=== PATIENT | female | born 1940 | race Caucasian/White ===

== ENCOUNTER 2016-06-03 00:38 | Inpatient (IN) ==
[2016-06-03 02:49] LABS: Basophils % 0.3 %; Eosinophils # 0.2 K/mcL (0.0-0.6); Eosinophils % 1.2 %; Hematocrit 41.2 % (35.3-44.9); Hemoglobin 13.1 g/dL (11.5-15.4); Immature Granulocytes % 0.6 % (0-4); Lymphocytes # 3.8 K/mcL (0.6-4.6); Lymphocytes % 30.8 %; Mean Corpuscular HGB Conc 31.8 g/dL (31.6-35.5); Mean Corpuscular Hemoglobin 29.1 pg (28.0-33.3); Mean Corpuscular Volume 91.6 fL (83.0-100.0); Mean Platelet Volume 9.9 fL (9.4-12.4); Monocytes # 1.2 K/mcL (0.0-1.3); Monocytes % 9.9 %; Platelet Count 249 K/mcL (140-400); Red Cell Distribution Width 13.4 % (11.5-14.5); Segmented Neutrophils % 57.2 %
[2016-06-03 02:54] LABS: INR 1.9; Prothrombin Time 21.4 Seconds (9.4-12.1)
[2016-06-03 02:57] LABS: Activated Partial Thrombo Time 37.5 Seconds (26.0-36.0)
[2016-06-03 03:06] LABS: Alanine Aminotransferase 56 Units/L (0-55); Albumin 3.1 g/dL (3.5-5.0); Albumin/Globulin Ratio 0.8 (1.1-2.2); Alkaline Phosphatase 126 Units/L (38-126); Aspartate Amino Transferase 32 Units/L (5-34); BUN/Creatinine Ratio 31 (6-26); Bilirubin,Direct 0.5 mg/dL (0.0-0.5); Bilirubin,Indirect 0.9 mg/dL (0.0-1.2); Bilirubin,Total 1.4 mg/dL (0.2-1.2); Blood Urea Nitrogen 24 mg/dL (7-20); Calcium 8.8 mg/dL (8.6-10.8); Carbon Dioxide 26 mEq/L (19-29); Chloride 104 mEq/L (98-109); Globulin 3.8 g/dL (2.4-3.5); Glucose 89 mg/dL (70-99); Osmolality,Calculated 292 (280-300); Potassium 3.5 mEq/L (3.5-4.5); Sodium 139 mEq/L (136-145); Total Protein 6.9 g/dL (6.0-8.3); eGFR For African Americans > 60 (> 60); eGFR For Non-African Americans > 60 (> 60)
--- NOTE | 2016-06-03 03:16 | Emergency Department Note ---
Disposition Clinical Impression: Hematuria, Lymphedema Disposition: Admitted As Inpatient Condition: Good Referrals: Thomas Parisi DO [Primary Care Provider] - Forms: Work/School Release, ED Satisfaction Letter Time of Disposition: 06:59 General Adult HPI - General Chief complaint: ED General Medical Stated complaint: r/o dvt vaginal bleeding Time Seen by Provider: 06/03/16 02:09 Source: patient Limitations: no limitations Nursing Notes Reviewed: Yes Vital Signs Reviewed: Yes - History of Present Illness HPI Narrative: 75-year-old female presents with bilateral leg swelling. She mentioned she had felt sick today had not taken her "water pill". She mentioned she has been diagnosed with cellulitis in her legs, but denies taking any medications for this. She states the redness states comes and goes. She states her legs are always swollen however they have become more swollen lately the point where it became difficult to walk. She does have a history of DVT currently taking Xarelto. She also has some mild tenderness on her left lower leg. Earlier in the week she had some abdominal pain but currently denies that. She has mentioned that she had been diagnosed with a urinary tract infection, and feels that she still has one. She has noticed some blood when she urinates, when she wipes. She has noticed some vaginal itching that has been occurring for 1 week. She denies any shortness of breath, cough, chest pain, history of liver disease. Pain Scale: 0 - Related Data Home Medications Medication Instructions Recorded Confirmed Bumetanide [Bumex] 1 mg PO DAILY 01/01/15 06/03/16 Gabapentin [Neurontin] 300 mg PO TID 01/01/15 06/03/16 Metoprolol [Lopressor] 50 mg PO BID 01/01/15 06/03/16 Rivaroxaban [Xarelto] 20 mg PO DAILY 01/01/15 06/03/16 Diltiazem HCl [Cartia Xt] 180 mg PO DAILY 08/14/15 06/03/16 LORazepam [Ativan] 0.5 mg PO BID PRN 08/14/15 06/03/16 Allergies Allergy/AdvReac Type Severity Reaction Status Date / Time tramadol [From Ultram] Allergy Swelling Verified 08/19/15 12:42 of Lip/Tongue/Throat latex AdvReac Unknown See Verified 08/19/15 14:44 Comments All systems ED: reviewed and negative except as stated. Constitutional: Denies: fever, chills ENT ED: Denies: ear pain Cardiovascular: Denies: chest pain Respiratory: Denies: dyspnea Gastrointestinal: Denies: abdominal pain, nausea, vomiting Genitourinary: Reports: hematuria, other (genital itching). Denies: dysuria, discharge Musculoskeletal: Denies: back pain Integumentary: Denies: rash Neurological: Reports: weakness Endocrine: Denies: fatigue Hematological/Lymphatic: Reports: as per HPI Past Medical History - Past Medical History Medical history: Reports: asthma, DVT, hypertension, other Psychiatric history: Reports: anxiety, depression - Social History Smoking Status: Never smoker Smokeless Tobacco Status: No Alcohol use: Reports: none Drug use: Reports: none Physical Exam - General Limitations: no limitations General appearance: alert, in no apparent distress - Head Head exam: normocephalic - Eye Eye exam: Present: EOMI. Absent: conjunctival injection - ENT ENT exam: normal oropharynx - Neck Neck exam: Present: full ROM - Chest Chest inspection: Absent: symmetric chest wall rise - Respiratory Respiratory exam: Absent: respiratory distress - Cardiovascular Cardiovascular exam: Present: regular rate, normal rhythm - Extremities Exam Extremities exam: Present: normal inspection, full ROM, other (BLE lymphedema, with chronic appearing erythema) - Back Exam Back exam: Present: full ROM - Neurological Exam Neurological exam: Present: alert, oriented X3 - Psychiatric Psychiatric exam: Present: normal affect, normal mood - Skin Skin exam: Present: warm, dry, intact, normal color. Absent: rash, cyanosis, diaphoresis Course Course Narrative: Patient seen and examined. On examination she is morbidly obese, however she has some bilateral pitting edema, which she states is new. She also has some erythema over her tibial regions, and excoriations. She states that this redness comes and goes. It appears to be chronic less concerning for cellulitis. No abdominal pain, chest pain, shortness of breath. She is slightly tachycardic. She states noncompliance with her budenoside. Workup initiated. Vital Signs Temperature 98.4 F 06/03/16 00:39 Pulse Rate 90 06/03/16 00:39 Respiratory Rate 18 06/03/16 00:39 Blood Pressure 137/83 06/03/16 00:39 O2 Sat by Pulse Oximetry 97 06/03/16 00:39 Temperature 98.4 F 06/03/16 00:39 Pulse Rate 98 06/03/16 04:36 Respiratory Rate 20 06/03/16 04:36 Blood Pressure 160/94 06/03/16 04:36 O2 Sat by Pulse Oximetry 97 06/03/16 04:36 Oxygen Delivery Oxygen Delivery Room Air Medical Decision Making - MDM Narrative Medical decision making narrative: Patient 75-year-old female who presented with bilateral leg swelling. Patient does have history of DVT but is currently also. Patient seen and examined, she has some chronic-appearing lymphedema, and has been worsening due to her noncompliance of her diuretic. She also complained of vaginal bleeding, however upon further discussion this does appear to be hematuria, but she does notice some bleeding when she wipes, and some vaginal itching however she states this has only been occurring for 1 week. She was discussed with Dr. Amin , who also had FaceTime the patient. Patient was able to stand on her feet, however had difficulty ambulating. Decision was made for admission, patient was accepted by hospitalist. - Lab Data Lab results reviewed: Yes I reviewed the patient's lab results. Result diagrams: 06/03/16 02:35 06/03/16 02:35 Lab Results 06/03/16 06/03/16 06/03/16 Range/Units 02:35 02:35 02:35 WBC 12.2 H (4.3-11.1) K/mcL RBC 4.50 (3.82-4.97) M/mcL Hgb 13.1 (11.5-15.4) g/dL Hct 41.2 (35.3-44.9) % MCV 91.6 (83.0-100.0) fL MCH 29.1 (28.0-33.3) pg MCHC 31.8 (31.6-35.5) g/dL RDW 13.4 (11.5-14.5) % Plt Count 249 (140-400) K/mcL MPV 9.9 (9.4-12.4) fL Immature Gran % 0.6 (0-4) % Seg Neutrophils % 57.2 % Lymphocytes % 30.8 % Monocytes % 9.9 % Eosinophils % 1.2 % Basophils % 0.3 % Neutrophils # 7.0 (1.6-8.9) K/mcL Lymphocytes # 3.8 (0.6-4.6) K/mcL Monocytes # 1.2 (0.0-1.3) K/mcL Eosinophils # 0.2 (0.0-0.6) K/mcL Basophils # 0.0 (0.0-0.2) K/mcL PT 21.4 H (9.4-12.1) Seconds INR 1.9 APTT 37.5 H (26.0-36.0) Seconds Sodium (136-145) mEq/L Potassium (3.5-4.5) mEq/L Chloride (98-109) mEq/L Carbon Dioxide (19-29) mEq/L BUN (7-20) mg/dL Creatinine (0.57-1.11) mg/dL Est GFR ( Amer) (> 60) Est GFR (Non-Af Amer) (> 60) BUN/Creatinine Ratio (6-26) Glucose (70-99) mg/dL Calculated Osmolality (280-300) Calcium (8.6-10.8) mg/dL Total Bilirubin (0.2-1.2) mg/dL Direct Bilirubin (0.0-0.5) mg/dL Indirect Bilirubin (0.0-1.2) mg/dL AST (5-34) Units/L ALT (0-55) Units/L Alkaline Phosphatase (38-126) Units/L Troponin I (0-0.03) ng/mL B-Natriuretic Peptide 71 (0-100) pg/mL Serum Total Protein (6.0-8.3) g/dL Albumin (3.5-5.0) g/dL Globulin (2.4-3.5) g/dL Albumin/Globulin Ratio (1.1-2.2) Urine Color (Yellow) Urine Clarity (Clear) Urine pH (5.0-8.0) pH Units Ur Specific Freedom (1.010-1.025) Urine Protein (Neg-Trace) mg/dL Urine Glucose (UA) (Normal) mg/dL Urine Ketones (Negative) mg/dL Urine Blood (Negative) Urine Nitrite (Negative) Urine Bilirubin (Negative) Urine Urobilinogen (Normal) mg/dL Ur Leukocyte Esterase (Negative) Urine Microscopic RBC (0-3) per hpf Urine Microscopic WBC (0-3) per hpf Ur Squamous Epith Cells (None-Few) per lpf Urine Bacteria (None-Few) per hpf Hyaline Casts (None-Few) per lpf Urine Yeast (None Seen) per hpf 06/03/16 06/03/16 06/03/16 Range/Units 02:35 02:35 04:36 WBC (4.3-11.1) K/mcL RBC (3.82-4.97) M/mcL Hgb (11.5-15.4) g/dL Hct (35.3-44.9) % MCV (83.0-100.0) fL MCH (28.0-33.3) pg MCHC (31.6-35.5) g/dL RDW (11.5-14.5) % Plt Count (140-400) K/mcL MPV (9.4-12.4) fL Immature Gran % (0-4) % Seg Neutrophils % % Lymphocytes % % Monocytes % % Eosinophils % % Basophils % % Neutrophils # (1.6-8.9) K/mcL Lymphocytes # (0.6-4.6) K/mcL Monocytes # (0.0-1.3) K/mcL Eosinophils # (0.0-0.6) K/mcL Basophils # (0.0-0.2) K/mcL PT (9.4-12.1) Seconds INR APTT (26.0-36.0) Seconds Sodium 139 (136-145) mEq/L Potassium 3.5 (3.5-4.5) mEq/L Chloride 104 (98-109) mEq/L Carbon Dioxide 26 (19-29) mEq/L BUN 24 H (7-20) mg/dL Creatinine 0.77 (0.57-1.11) mg/dL Est GFR ( Amer) > 60 (> 60) Est GFR (Non-Af Amer) > 60 (> 60) BUN/Creatinine Ratio 31 H (6-26) Glucose 89 (70-99) mg/dL Calculated Osmolality 292 (280-300) Calcium 8.8 (8.6-10.8) mg/dL Total Bilirubin 1.4 H (0.2-1.2) mg/dL Direct Bilirubin 0.5 (0.0-0.5) mg/dL Indirect Bilirubin 0.9 (0.0-1.2) mg/dL AST 32 (5-34) Units/L ALT 56 H (0-55) Units/L Alkaline Phosphatase 126 (38-126) Units/L Troponin I 0.01 (0-0.03) ng/mL B-Natriuretic Peptide (0-100) pg/mL Serum Total Protein 6.9 (6.0-8.3) g/dL Albumin 3.1 L (3.5-5.0) g/dL Globulin 3.8 H (2.4-3.5) g/dL Albumin/Globulin Ratio 0.8 L (1.1-2.2) Urine Color Red A (Yellow) Urine Clarity Turbid A (Clear) Urine pH 6.0 (5.0-8.0) pH Units Ur Specific Freedom > 1.030 H (1.010-1.025) Urine Protein 100 H (Neg-Trace) mg/dL Urine Glucose (UA) Normal (Normal) mg/dL Urine Ketones 80 H (Negative) mg/dL Urine Blood Large H (Negative) Urine Nitrite Negative (Negative) Urine Bilirubin Small H (Negative) Urine Urobilinogen Normal (Normal) mg/dL Ur Leukocyte Esterase Large H (Negative) Urine Microscopic RBC 30-50 H (0-3) per hpf Urine Microscopic WBC TNTC H (0-3) per hpf Ur Squamous Epith Cells Many H (None-Few) per lpf Urine Bacteria Many H (None-Few) per hpf Hyaline Casts Few (None-Few) per lpf Urine Yeast Few H (None Seen) per hpf - Radiology Data Radiology results reviewed: Yes I reviewed the patient's radiology results. Attestation Statement - Attestation Attestation: I performed a history and physical examination of the patient and discussed their management with the PA. I reviewed the residents note and agree with the documented findings and plan of care. This 75-year-old female presents with lower extremity swelling and was referred in to be ruled out for DVT states pretty clear on exam that this is lymphedema. It is very extensive. Both legs are huge with multiple sores. She is somewhat disheveled appearing and appears to be very unsteady. She has some chronic back pain issues and is hunched over when trying to walk. There was and also a report of vaginal bleeding but when talking the patient actually sounds like she meant blood in her urine. In any case her DVT study is negative. See MLP note for further details in this patient's care
[2016-06-03] MEDS ORDERED: Furosemide 20 MG/2 ML VIAL IVP ONE (03:52)
[2016-06-03 04:51] LABS: Bilirubin,Urine Small (Negative); Blood,Urine Large (Negative); Clarity,Urine Turbid (Clear); Color,Urine Red (Yellow); Glucose,Urine (UA) Normal (Normal); Ketones,Urine 80 mg/dL (Negative); Leukocyte Esterase,Urine Large (Negative); Nitrite,Urine Negative (Negative); Protein,Urine 100 mg/dL (Neg-Trace); Specific Gravity,Urine > 1.030 (1.010-1.025); Urobilinogen,Urine Normal (Normal)
[2016-06-03 04:53] LABS: Bacteria,Urine Many per hpf (None-Few); Hyaline Casts,Urine Few per lpf (None-Few); Squamous Epithelial Cell,Urine Many per lpf (None-Few); WBC,Urine TNTC per hpf (0-3)
[2016-06-03 05:06] LABS: RBC,Urine 30-50 per hpf (0-3)
[2016-06-03 05:07] LABS: Yeast,Urine Few per hpf (None Seen)
[2016-06-03] MEDS ORDERED: Naloxone 0.4 MG/ML INJ IVP PRN (07:25)
[2016-06-03] MEDS ORDERED: Acetaminophen 325 MG TABLET PO PRN (07:25)
[2016-06-03] MEDS ORDERED: *HR* LORazepam 0.5 MG TABLET PO PRN (07:26)
[2016-06-03] MEDS: *HR* Rivaroxaban 10 MG TABLET PO SCH (08:01)
[2016-06-03] MEDS: Bumetanide 1 MG/4 ML VIAL IVP SCH ×2 (08:01→16:48)
[2016-06-03] MEDS: Gabapentin 300 MG CAPSULE PO SCH ×3 (08:01→20:20)
[2016-06-03] MEDS: Diltiazem CD (24hr) 180 MG CAPSULE PO SCH (08:01)
--- NOTE | 2016-06-03 08:43 | Internal Med History&Physical ---
Date of Encounter: 06/03/16 Time of Encounter: 08:10 Assessment and Plan (1) Lymphedema Current visit: Yes Status: Acute Patient with worsening bilateral lymphedema/pedal edema. With pain during ambulation. Will treat with intravenous diuretics and leg elevation. We will also consult physical therapy and manager social work to look into discharge planning for the patient. No signs of cellulitis at this time. (2) Essential hypertension Current visit: Yes Status: Chronic Monitor blood pressure. Currently elevated. Will adjust antihypertensive regimen accordingly. (3) Chronic anticoagulation Current visit: Yes Status: Chronic Patient is on Xarelto for anticoagulation. We will continue the same. (4) UTI (urinary tract infection) Current visit: Yes Status: Acute Patient with hematuria and signs of acute UTI. Will treat for acute UTI and await urine culture results. She has had hematuria in the past and appears to be having some chronic bladder inflammation which could be contributing to this. Qualifiers: Urinary tract infection type: acute cystitis Hematuria presence: with hematuria Qualified Code(s): N30.01 - Acute cystitis with hematuria Internal Medicine - H&P: HPI Chief complaint: Worsening swelling in lower extremities with pain Admitted From: Emergency Dept Plans for Post Hospital Care: Home History of present illness: Ms. Bhagat is a 75 year old female patient with history of prior deep vein thrombosis, hypertension and hyperlipidemia who presented to the ER with complaints of worsening swelling in her both lower extremities. She says her symptoms began about 2 days back and she woke up in the morning with increasing swelling in her legs. She was unable to ambulate as she developed severe pain with minimal ambulation. She did not take her diuretics as prescribed due to problems with ambulation and she feels that made her swelling worse. She denies any fever chills or night sweats. No shortness of breath or cough. No chest pain either. No nausea or vomiting. She does report getting episodes of cellulitis previously in her legs. She lives with her grandson. She also reports blood mentioned she urinates and has had this problem in the past. She had a cystoscopy and bladder biopsy done last year which was positive for squamous metaplasia without atypia concerning for chronic and focal acute inflammation. Past Med Surg Social Fam HX - Past Medical History Attestation: Yes The following information was validated with the patient. Source: patient, old records reviewed Medical history: asthma, DVT, hypertension Psychiatric history: anxiety, depression - Past Surgical History Surgical History: other (Cystoscopy and bladder biopsy) - Social History Smoking Status: Never smoker Smokeless Tobacco Status: No Alcohol use: none Drug use: none - Additional Family History Additional family history: Reviewed and found to be noncontributory at this time Internal Medicine - H&P: Meds Bumetanide [Bumex] 0.5 mg PO BID 01/01/15 [History] Gabapentin [Neurontin] 300 mg PO TID 01/01/15 [History] Metoprolol [Lopressor] 50 mg PO BID 01/01/15 [History] Rivaroxaban [Xarelto] 20 mg PO DAILY 01/01/15 [History] Diltiazem HCl [Cartia Xt] 180 mg PO DAILY 08/14/15 [History] LORazepam [Ativan] 0.5 mg PO BID PRN 08/14/15 [History] Allergies tramadol [From Ultram] Allergy (Verified 08/19/15 12:42) Swelling of Lip/Tongue/Throat latex Adverse Reaction (Unknown, Verified 08/19/15 14:44) See Comments negative 07/31/15 All Systems PM: A 10-system review of systems was performed and is negative for pertinent findings except as documented above in the HPI. - Constitutional Constitutional: no chills, no fever(s), no night sweats - EENT Eyes: no change in vision, no discharge, no pain, no photophobia Ears: no ear discharge, no ear pain, no tinnitus Nose, mouth and throat: no dysphagia, no nasal discharge, no neck pain, no sore throat - Cardiovascular Cardiovascular ROS IM: edema, no chest pain, no diaphoresis, no dyspnea, no lightheadedness, no palpitations, no syncope - Respiratory Respiratory: no cough, no dyspnea, no wheezing, no excessive phlegm production - Gastrointestinal Gastrointestinal: no abdominal pain, no diarrhea, no hematemesis, no hematochezia, no melena, no nausea, no vomiting - Genitourinary Genitourinary: no change in urinary stream, no dysuria, no flank pain, no hematuria - Musculoskeletal Musculoskeletal ROS IM: other (Pain in lower extremities with ambulation), no numbness, no tingling - Integumentary Integumentary IM: no rash, no unusual bruising - Neurological Neurological ROS: no confusion, no convulsions, no focal weakness, no numbness, no tingling, no tremor(s) - Hematologic/Lymphatic Hematologic/Lymphatic: no easy bruising - Constitutional Vitals: Temp Pulse Resp BP Pulse Ox 98.1 F 90 18 149/89 97 06/03/16 07:48 06/03/16 07:48 06/03/16 07:48 06/03/16 07:48 06/03/16 07:48 General appearance: Present: cooperative, mild distress, A&O X 3, answers questions appropriately - Eye Eye exam: Present: EOMI, PERRL, conjuntiva pink, sclera anicteric - Neck Neck exam general surgery: Present: supple, trachea midline. Absent: lymphadenopathy - Respiratory Respiratory exam: Present: CTAB. Absent: accessory muscle use, rales, rhonchi, wheezes - Cardiovascular Cardiovascular exam: Present: RRR, +S1, +S2. Absent: diastolic murmur, gallop, rubs, systolic murmur - GI/Abdominal GI/Abdominal exam: Present: normal bowel sounds, soft, no peritoneal signs. Absent: distended, tenderness - Extremities Exam Extremities exam: Present: warm, radial pulses palpable and symetrical. Absent : calf tenderness, cyanotic, pedal edema Additional comments: Patient has bilateral lymphedema with stasis dermatitis on both lower extremities along with some excoriations which are healing. No signs of cellulitis at this time. - Neurological Exam Neurological exam: Present: alert, CN II-XII intact, oriented X3, no focal deficits. Absent: facial droop, speech deficit - Skin Skin exam: Present: dry, erythema (In lower extremities), intact Internal Med - H&P Results - Labs CBC & Chem 7: 06/03/16 02:35 06/03/16 02:35 - Impressions Impressions Chest X-Ray 06/03/16 02:10 IMPRESSION: 1. No acute radiographic finding to account for patient's chest pain. D/ / Chauncey Bhat MD / Chauncey Bhat MD Interpreting Provider: Chauncey Bhat MD - Attending Attestation This document has been at least partially created by [employer] recognition technology by Dr. Duarte. Errors in grammar, wording or other phrases may exist. If errors are found after the documentation is signed, they will be addressed individually in the addendum section of this document when appropriate.
[2016-06-03] MEDS ORDERED: *HR* Morphine 2 MG/ML SYRINGE IVP PRN (13:25)
[2016-06-03] MEDS: *HR* Morphine 2 MG/ML SYRINGE IVP PRN (13:41)
[2016-06-04] MEDS: *HR* OxyCODONE/APAP 5/325 TABLET PO PRN ×2 (00:16→14:20)
[2016-06-04] MEDS: *HR* Morphine 2 MG/ML SYRINGE IVP PRN (04:14)
[2016-06-04 06:06] LABS: Basophils # 0.1 K/mcL (0.0-0.2); Basophils % 0.4 %; Eosinophils # 0.1 K/mcL (0.0-0.6); Eosinophils % 0.7 %; Hematocrit 41.7 % (35.3-44.9); Hemoglobin 13.3 g/dL (11.5-15.4); Lymphocytes # 3.5 K/mcL (0.6-4.6); Lymphocytes % 28.5 %; Mean Corpuscular HGB Conc 31.9 g/dL (31.6-35.5); Mean Corpuscular Hemoglobin 29.3 pg (28.0-33.3); Mean Corpuscular Volume 91.9 fL (83.0-100.0); Mean Platelet Volume 10.7 fL (9.4-12.4); Monocytes # 1.6 K/mcL (0.0-1.3); Monocytes % 12.8 %; Neutrophils # 6.9 K/mcL (1.6-8.9); Platelet Count 291 K/mcL (140-400); Red Blood Count 4.54 M/mcL (3.82-4.97); Red Cell Distribution Width 13.7 % (11.5-14.5); Segmented Neutrophils % 56.6 %
[2016-06-04 06:36] LABS: BUN/Creatinine Ratio 23 (6-26); Blood Urea Nitrogen 17 mg/dL (7-20); Calcium 8.6 mg/dL (8.6-10.8); Carbon Dioxide 29 mEq/L (19-29); Chloride 102 mEq/L (98-109); Glucose 126 mg/dL (70-99); Osmolality,Calculated 295 (280-300); Potassium 3.5 mEq/L (3.5-4.5); Sodium 141 mEq/L (136-145); eGFR For African Americans > 60 (> 60); eGFR For Non-African Americans > 60 (> 60)
[2016-06-04] MEDS: *HR* Rivaroxaban 10 MG TABLET PO SCH (08:39)
[2016-06-04] MEDS: Bumetanide 1 MG/4 ML VIAL IVP SCH ×2 (08:39→17:16)
[2016-06-04] MEDS: Gabapentin 300 MG CAPSULE PO SCH ×3 (08:39→21:05)
[2016-06-04] MEDS: Diltiazem CD (24hr) 180 MG CAPSULE PO SCH (08:40)
--- NOTE | 2016-06-04 20:35 | Internal Med Progress Note ---
Date of Encounter: 06/04/16 Time of Encounter: 20:33 - Assessment and plan (1) Muscular deconditioning Current Visit: Yes Status: Acute Assessment and plan: PT OT were consulted however patient refused to be evaluated by physical therapy twice and occupational therapy once. Therefore we cannot make a determination whether she would benefit from home physical therapy or she will need inpatient rehabilitation. We will revisit her tomorrow to assess by PT and OT. (2) UTI (urinary tract infection) Current Visit: Yes Status: Acute Assessment and plan: IV ceftriaxone. Urinary culture reviewed and negative. The patient was taking Bactrim. On discharge we will switch her back to Bactrim. Qualifiers: Urinary tract infection type: acute cystitis Hematuria presence: with hematuria Qualified Code(s): N30.01 - Acute cystitis with hematuria (3) Lymphedema Current Visit: Yes Status: Acute Assessment and plan: Leg elevation. IV Lasix. Mobilization and physical therapy. (4) Essential hypertension Current Visit: Yes Status: Chronic Assessment and plan: Resume home meds. (5) Chronic anticoagulation Current Visit: Yes Status: Chronic - Subjective Interval history: Patient presented to the hospital with generalized weakness, blood in the urine and lower extremity swelling. She reports she is significantly weak. Her lower extremity swelling has improved with use of IV Lasix. She reports urinary incontinence and increased urination since the Lasix was given last night. - Constitutional Vitals: Temp Pulse Resp BP Pulse Ox 98.1 F 94 17 119/72 95 06/04/16 20:28 06/04/16 20:28 06/04/16 20:28 06/04/16 20:28 06/04/16 20:28 General appearance: Present: cooperative, mild distress, A&O X 3, answers questions appropriately - Respiratory Respiratory exam: Present: CTAB. Absent: accessory muscle use, rales, rhonchi, wheezes - Cardiovascular Cardiovascular exam: Present: RRR, +S1, +S2. Absent: diastolic murmur, gallop, rubs, systolic murmur - GI/Abdominal GI/Abdominal exam: Present: normal bowel sounds, soft, no peritoneal signs. Absent: distended, tenderness - Extremities Exam Extremities exam: Present: pedal edema, warm, radial pulses palpable and symetrical. Absent: calf tenderness, cyanotic Internal Medicine: Result - Labs CBC & Chem 7: 06/04/16 05:18 06/04/16 05:18 Labs: Short CBC 06/04/16 Range/Units 05:18 WBC 12.2 H (4.3-11.1) K/mcL Hgb 13.3 (11.5-15.4) g/dL Hct 41.7 (35.3-44.9) % Plt Count 291 (140-400) K/mcL Neutrophils # 6.9 (1.6-8.9) K/mcL BMP 06/04/16 05:18 Sodium 141 Potassium 3.5 Chloride 102 Carbon Dioxide 29 BUN 17 Creatinine 0.74 Glucose 126 H Calcium 8.6 - ABG Interpretation ABG results: PT/INR, D-dimer PT 21.4 Seconds (9.4-12.1) H 06/03/16 02:35 Consult Discharge Plan - Plan Referrals: Thomas Parisi DO [Primary Care Provider] -
[2016-06-05] MEDS: Nystatin POWDER 30 GM BOTTLE TP SCH ×4 (06:25→20:42)
[2016-06-05] MEDS: Gabapentin 300 MG CAPSULE PO SCH ×3 (09:21→19:43)
[2016-06-05] MEDS: *HR* Rivaroxaban 10 MG TABLET PO SCH (09:21)
[2016-06-05] MEDS: Bumetanide 1 MG/4 ML VIAL IVP SCH ×2 (09:21→17:32)
[2016-06-05] MEDS: Diltiazem CD (24hr) 180 MG CAPSULE PO SCH (09:21)
--- NOTE | 2016-06-05 11:35 | Internal Med Progress Note ---
Date of Encounter: 06/05/16 Time of Encounter: 11:33 - Assessment and plan (1) Muscular deconditioning Current Visit: Yes Status: Acute Assessment and plan: 06/05/2016: PT recommends senior care facility. Patient is severely deconditioned. We will continue PT OT while in-house. 06/04/2016: PT OT were consulted however patient refused to be evaluated by physical therapy twice and occupational therapy once. Therefore we cannot make a determination whether she would benefit from home physical therapy or she will need inpatient rehabilitation. We will revisit her tomorrow to assess by PT and OT. (2) UTI (urinary tract infection) Current Visit: Yes Status: Acute Assessment and plan: Was on IV ceftriaxone. Urinary culture reviewed and negative. The patient was taking Bactrim. UTI could be the source of sepsis however unlikely. We will broaden coverage 1 cefepime. Qualifiers: Urinary tract infection type: acute cystitis Hematuria presence: with hematuria Qualified Code(s): N30.01 - Acute cystitis with hematuria (3) Lymphedema Current Visit: Yes Status: Acute Assessment and plan: Leg elevation. IV Lasix. Mobilization and physical therapy. (4) Essential hypertension Current Visit: Yes Status: Chronic Assessment and plan: Resume home meds. (5) Chronic anticoagulation Current Visit: Yes Status: Chronic Assessment and plan: Continue Xarelto (6) Sepsis Current Visit: Yes Status: Acute Assessment and plan: 06/05/2016: This is a new problem today. Over the last 12 hours patient spiked a low-grade temperature of 100.4, she has been tachycardic with heart rate of 94 and white blood cell count is 12.2 today. The presence of urinary tract infection this likely reflects sepsis. Source of the sepsis could also be lower extremity cellulitis she has acute and chronic erythematous changes and lymphedema. I will order blood cultures, repeat urinalysis and culture, will obtain chest x-ray, lactic acid level. We will broaden coverage with cefepime to include resistant Klebsiella and Proteus. I will add coverage with vancomycin for possible MRSA given her skin wounds. Due to new diagnosis of sepsis will admit as inpatient. She will need 3 days of further care. For PMH, FH SH and ROS please refer to H&P dictated 2 days ago at [facility]. I have no changes or updates. Qualifiers: Sepsis type: sepsis due to unspecified organism Qualified Code(s): A41.9 - Sepsis, unspecified organism - Subjective Interval history: 06/05/2016: Patient reports bilateral lower extremity pain. Described as aching and dull, has been on and off for weeks, worse for the last 2 days. She says that her leg swelling has gone down over the last 24 hours. She reports chills last night, no subjective fever, denies chest pain although she did have chest pain on presentation to the hospital, denies cough. She denies dysuria and hematuria. 06/04/2016: Patient presented to the hospital with generalized weakness, blood in the urine and lower extremity swelling. She reports she is significantly weak. Her lower extremity swelling has improved with use of IV Lasix. She reports urinary incontinence and increased urination since the Lasix was given last night. - Constitutional Vitals: Temp Pulse Resp BP Pulse Ox 98.9 F 93 16 115/75 93 06/05/16 06:48 06/05/16 06:48 06/05/16 06:48 06/05/16 06:48 06/05/16 06:48 General appearance: Present: cooperative, mild distress, A&O X 3, answers questions appropriately - Respiratory Respiratory exam: Present: CTAB. Absent: accessory muscle use, rales, rhonchi, wheezes - Cardiovascular Cardiovascular exam: Present: RRR, +S1, +S2. Absent: diastolic murmur, gallop, rubs, systolic murmur - GI/Abdominal GI/Abdominal exam: Present: normal bowel sounds, soft, no peritoneal signs. Absent: distended, tenderness - Extremities Exam Extremities exam: Present: pedal edema (Bilateral lower extremity lymphedema), warm, radial pulses palpable and symetrical. Absent: calf tenderness, cyanotic - Neurological Exam Neurological exam: Present: CN II-XII intact, oriented X3, no focal deficits. Absent: pronater drift, facial droop, speech deficit - Skin Skin exam: Present: erythema (Bilateral lower leg erythema and scabbed wounds, no abscesses, no ulceration ) Internal Medicine: Result - Labs CBC & Chem 7: 06/04/16 05:18 06/04/16 05:18 - ABG Interpretation ABG results: PT/INR, D-dimer PT 21.4 Seconds (9.4-12.1) H 06/03/16 02:35 Consult Discharge Plan - Plan Referrals: Thomas Parisi DO [Primary Care Provider] -
[2016-06-05] MEDS ORDERED: Vancomycin 1,750 MG in D5% in Water 250 ML IVPB SCH (12:00)
[2016-06-05 12:16] LABS: Basophils # 0.1 K/mcL (0.0-0.2); Basophils % 0.4 %; Eosinophils % 0.1 %; Hematocrit 41.6 % (35.3-44.9); Hemoglobin 13.1 g/dL (11.5-15.4); Immature Granulocytes % 0.7 % (0-4); Lymphocytes # 3.3 K/mcL (0.6-4.6); Lymphocytes % 24.1 %; Mean Corpuscular HGB Conc 31.5 g/dL (31.6-35.5); Mean Corpuscular Hemoglobin 28.7 pg (28.0-33.3); Mean Corpuscular Volume 91.2 fL (83.0-100.0); Mean Platelet Volume 9.7 fL (9.4-12.4); Monocytes # 2.1 K/mcL (0.0-1.3); Neutrophils # 8.2 K/mcL (1.6-8.9); Platelet Count 311 K/mcL (140-400); Red Blood Count 4.56 M/mcL (3.82-4.97); Red Cell Distribution Width 13.4 % (11.5-14.5); Segmented Neutrophils % 59.7 %
[2016-06-05] MEDS: Vancomycin 1,750 MG in D5% in Water 500 ML IVPB SCH (13:01)
[2016-06-05 14:29] LABS: Bilirubin,Urine Negative (Negative); Blood,Urine Moderate (Negative); Clarity,Urine Cloudy (Clear); Color,Urine Yellow (Yellow); Glucose,Urine (UA) Normal (Normal); Ketones,Urine Negative (Negative); Leukocyte Esterase,Urine Large (Negative); Nitrite,Urine Negative (Negative); Protein,Urine Negative (Neg-Trace); Specific Gravity,Urine 1.013 (1.010-1.025); Urobilinogen,Urine Normal (Normal)
[2016-06-05 14:30] LABS: Bacteria,Urine None Seen per hpf (None-Few); Hyaline Casts,Urine None Seen per lpf (None-Few); Squamous Epithelial Cell,Urine Many per lpf (None-Few); WBC,Urine TNTC per hpf (0-3)
[2016-06-05] MEDS: Cefepime HCl 1,000 MG in D5% in Water (Mini-Bag+) 100 ML IVPB SCH (17:33)
[2016-06-05] MEDS: *HR* OxyCODONE/APAP 5/325 TABLET PO PRN (21:59)
[2016-06-06] MEDS: Vancomycin 1,750 MG in D5% in Water 500 ML IVPB SCH ×2 (01:13→13:29)
[2016-06-06 03:24] LABS: Basophils % 0.3 %; Eosinophils # 0.1 K/mcL (0.0-0.6); Eosinophils % 0.4 %; Hematocrit 37.1 % (35.3-44.9); Hemoglobin 11.9 g/dL (11.5-15.4); Immature Granulocytes % 0.7 % (0-4); Lymphocytes % 33.3 %; Mean Corpuscular HGB Conc 32.1 g/dL (31.6-35.5); Mean Corpuscular Volume 90.5 fL (83.0-100.0); Mean Platelet Volume 10.1 fL (9.4-12.4); Monocytes # 1.5 K/mcL (0.0-1.3); Monocytes % 12.5 %; Neutrophils # 6.4 K/mcL (1.6-8.9); Platelet Count 268 K/mcL (140-400); Red Cell Distribution Width 13.4 % (11.5-14.5); Segmented Neutrophils % 52.8 %
[2016-06-06 03:35] LABS: BUN/Creatinine Ratio 28 (6-26); Blood Urea Nitrogen 23 mg/dL (7-20); Calcium 8.3 mg/dL (8.6-10.8); Carbon Dioxide 33 mEq/L (19-29); Chloride 93 mEq/L (98-109); Glucose 172 mg/dL (70-99); Osmolality,Calculated 286 (280-300); Potassium 2.8 mEq/L (3.5-4.5); Sodium 134 mEq/L (136-145); eGFR For African Americans > 60 (> 60); eGFR For Non-African Americans > 60 (> 60)
[2016-06-06] MEDS: Cefepime HCl 1,000 MG in D5% in Water (Mini-Bag+) 100 ML IVPB SCH ×2 (06:07→17:04)
[2016-06-06] MEDS: Nystatin POWDER 30 GM BOTTLE TP SCH ×3 (08:05→19:50)
[2016-06-06] MEDS: Bumetanide 1 MG/4 ML VIAL IVP SCH ×2 (08:06→17:04)
[2016-06-06] MEDS: Diltiazem CD (24hr) 180 MG CAPSULE PO SCH (08:06)
[2016-06-06] MEDS: *HR* Rivaroxaban 10 MG TABLET PO SCH (08:06)
[2016-06-06] MEDS: Gabapentin 300 MG CAPSULE PO SCH ×3 (08:06→19:49)
[2016-06-06 10:13] LABS: BUN/Creatinine Ratio 25 (6-26); Blood Urea Nitrogen 20 mg/dL (7-20); Carbon Dioxide 34 mEq/L (19-29); Chloride 93 mEq/L (98-109); Glucose 147 mg/dL (70-99); Osmolality,Calculated 287 (280-300); Potassium 3.1 mEq/L (3.5-4.5); Sodium 136 mEq/L (136-145); eGFR For African Americans > 60 (> 60); eGFR For Non-African Americans > 60 (> 60)
[2016-06-06] MEDS: *HR* OxyCODONE/APAP 5/325 TABLET PO PRN ×2 (11:32→23:08)
[2016-06-06] MEDS ORDERED: *HR* OxyCODONE/APAP 5/325 TABLET PO SCH (12:00)
--- NOTE | 2016-06-06 18:43 | Internal Med Progress Note ---
Date of Encounter: 06/06/16 Time of Encounter: 13:00 - Assessment and plan (1) Muscular deconditioning Current Visit: Yes Status: Acute Assessment and plan: 06/05/2016: PT recommends care home facility. Patient is severely deconditioned. We will continue PT OT while in-house. 06/04/2016: PT OT were consulted however patient refused to be evaluated by physical therapy twice and occupational therapy once. Therefore we cannot make a determination whether she would benefit from home physical therapy or she will need inpatient rehabilitation. We will revisit her tomorrow to assess by PT and OT. (2) UTI (urinary tract infection) Current Visit: Yes Status: Acute Assessment and plan: Was on IV ceftriaxone. Urinary culture reviewed and negative. The patient was taking Bactrim. UTI could be the source of sepsis however unlikely. I switched her coverage to cefepime. Repeat urine analysis reviewed shows no bacteria, positive leukocyte esterase which I suspect is chronic. I will follow -up urine culture. Qualifiers: Urinary tract infection type: acute cystitis Hematuria presence: with hematuria Qualified Code(s): N30.01 - Acute cystitis with hematuria (3) Lymphedema Current Visit: Yes Status: Acute Assessment and plan: Leg elevation. IV Lasix. Mobilization and physical therapy. (4) Essential hypertension Current Visit: Yes Status: Chronic Assessment and plan: Resume home meds. (5) Chronic anticoagulation Current Visit: Yes Status: Chronic Assessment and plan: Continue Xarelto (6) Sepsis Current Visit: Yes Status: Acute Assessment and plan: 06/06/2016: A likely urinary source since UA has improved. No bacteria. She does not have dysuria anymore. Clinically her UTI is improving. Possible lower extremity cellulitis source which also is improving clinically. I will continue with cefepime and vancomycin for the next 24 hours monitor and review blood cultures and de-escalate therapy and was negative. 06/05/2016: This is a new problem today. Over the last 12 hours patient spiked a low-grade temperature of 100.4, she has been tachycardic with heart rate of 94 and white blood cell count is 12.2 today. The presence of urinary tract infection this likely reflects sepsis. Source of the sepsis could also be lower extremity cellulitis she has acute and chronic erythematous changes and lymphedema. I will order blood cultures, repeat urinalysis and culture, will obtain chest x-ray, lactic acid level. We will broaden coverage with cefepime to include resistant Klebsiella and Proteus. I will add coverage with vancomycin for possible MRSA given her skin wounds. Due to new diagnosis of sepsis will admit as inpatient. She will need 3 days of further care. For PMH, FH SH and ROS please refer to H&P dictated 2 days ago at [facility]. I have no changes or updates. Qualifiers: Sepsis type: sepsis due to unspecified organism Qualified Code(s): A41.9 - Sepsis, unspecified organism - Subjective Interval history: 07/06/2016: Patient reports improvement and bilateral lower extremity pain and also new back pain. She reports some benefit from oral pain medication. She has not been able to ambulate stand or participate in physical therapy today. 06/05/2016: Patient reports bilateral lower extremity pain. Described as aching and dull, has been on and off for weeks, worse for the last 2 days. She says that her leg swelling has gone down over the last 24 hours. She reports chills last night, no subjective fever, denies chest pain although she did have chest pain on presentation to the hospital, denies cough. She denies dysuria and hematuria. 06/04/2016: Patient presented to the hospital with generalized weakness, blood in the urine and lower extremity swelling. She reports she is significantly weak. Her lower extremity swelling has improved with use of IV Lasix. She reports urinary incontinence and increased urination since the Lasix was given last night. - Constitutional Vitals: Temp Pulse Resp BP Pulse Ox 98.2 F 64 81 108/52 82 06/06/16 15:15 06/06/16 11:49 06/06/16 15:15 06/06/16 15:15 06/06/16 15:15 General appearance: Present: cooperative, mild distress, A&O X 3, answers questions appropriately - Eye Eye exam: Present: PERRL, conjuntiva pink, sclera anicteric Pupils: Present: PERRL - Respiratory Respiratory exam: Present: CTAB. Absent: accessory muscle use, rales, rhonchi, wheezes - Cardiovascular Cardiovascular exam: Present: RRR, +S1, +S2. Absent: diastolic murmur, gallop, rubs, systolic murmur - GI/Abdominal GI/Abdominal exam: Present: normal bowel sounds, soft, no peritoneal signs. Absent: distended, tenderness - Extremities Exam Extremities exam: Present: pedal edema (Bilateral lower extremity lymphedema), warm, radial pulses palpable and symetrical. Absent: calf tenderness, cyanotic Internal Medicine: Result - Labs CBC & Chem 7: 06/06/16 02:55 06/06/16 09:53 Labs: Short CBC 06/06/16 Range/Units 02:55 WBC 12.1 H (4.3-11.1) K/mcL Hgb 11.9 (11.5-15.4) g/dL Hct 37.1 (35.3-44.9) % Plt Count 268 (140-400) K/mcL Neutrophils # 6.4 (1.6-8.9) K/mcL BMP 06/06/16 06/06/16 02:55 09:53 Sodium 134 L 136 Potassium 2.8 L 3.1 L Chloride 93 L 93 L Carbon Dioxide 33 H 34 H BUN 23 H 20 Creatinine 0.82 0.79 Glucose 172 H 147 H Calcium 8.3 L 9.0 - ABG Interpretation ABG results: PT/INR, D-dimer PT 21.4 Seconds (9.4-12.1) H 06/03/16 02:35 Consult Discharge Plan - Plan Referrals: Thomas Parisi DO [Primary Care Provider] -
[2016-06-07 03:50] LABS: Basophils # 0.1 K/mcL (0.0-0.2); Basophils % 0.6 %; Eosinophils # 0.1 K/mcL (0.0-0.6); Eosinophils % 0.9 %; Hematocrit 38.2 % (35.3-44.9); Hemoglobin 12.3 g/dL (11.5-15.4); Immature Granulocytes % 0.8 % (0-4); Lymphocytes # 3.7 K/mcL (0.6-4.6); Mean Corpuscular HGB Conc 32.2 g/dL (31.6-35.5); Mean Corpuscular Hemoglobin 29.1 pg (28.0-33.3); Mean Corpuscular Volume 90.5 fL (83.0-100.0); Mean Platelet Volume 10.1 fL (9.4-12.4); Monocytes # 1.4 K/mcL (0.0-1.3); Monocytes % 12.9 %; Neutrophils # 5.3 K/mcL (1.6-8.9); Platelet Count 290 K/mcL (140-400); Red Blood Count 4.22 M/mcL (3.82-4.97); Red Cell Distribution Width 13.4 % (11.5-14.5); Segmented Neutrophils % 49.8 %
[2016-06-07 04:02] LABS: BUN/Creatinine Ratio 30 (6-26); Blood Urea Nitrogen 23 mg/dL (7-20); Calcium 8.5 mg/dL (8.6-10.8); Carbon Dioxide 32 mEq/L (19-29); Chloride 95 mEq/L (98-109); Glucose 113 mg/dL (70-99); Osmolality,Calculated 288 (280-300); Potassium 3.1 mEq/L (3.5-4.5); Sodium 137 mEq/L (136-145); eGFR For African Americans > 60 (> 60); eGFR For Non-African Americans > 60 (> 60)
[2016-06-07] MEDS ORDERED: Vancomycin 1,750 MG in D5% in Water 500 ML IVPB SCH (05:00)
[2016-06-07] MEDS: Cefepime HCl 1,000 MG in D5% in Water (Mini-Bag+) 100 ML IVPB SCH ×2 (06:22→18:05)
[2016-06-07] MEDS: Diltiazem CD (24hr) 180 MG CAPSULE PO SCH (07:51)
[2016-06-07] MEDS: Nystatin POWDER 30 GM BOTTLE TP SCH ×3 (07:52→20:27)
[2016-06-07] MEDS: *HR* Rivaroxaban 10 MG TABLET PO SCH (07:52)
[2016-06-07] MEDS: Gabapentin 300 MG CAPSULE PO SCH ×3 (07:52→20:26)
[2016-06-07] MEDS: Bumetanide 1 MG/4 ML VIAL IVP SCH ×2 (08:01→18:05)
--- NOTE | 2016-06-07 14:41 | Internal Med Progress Note ---
<Davis Huston - Last Filed: 06/07/16 15:51> Date of Encounter: 06/07/16 Time of Encounter: 08:30 - Assessment and plan (1) UTI (urinary tract infection) Current Visit: Yes Status: Acute Assessment and plan: Patient presented with signs and symptoms of urinary tract infection, dysuria, hematuria, elevated WBCs,. Previously treated with Bactrim. - Patient on vancomycin and cefepime, antibiotics were advanced to include coverage for resistant Klebsiella and Proteus. -Urine culture demonstrated no growth, blood cultures preliminary demonstrated no growth. Plan: Continue broad-spectrum antibiotics today with plans de-escalate tomorrow. Qualifiers: Urinary tract infection type: acute cystitis Hematuria presence: with hematuria Qualified Code(s): N30.01 - Acute cystitis with hematuria (2) Lymphedema Current Visit: Yes Status: Acute Assessment and plan: Leg elevation. Mobilization and physical therapy. - Continue Bumex 1 mg IV push BID. (3) Essential hypertension Current Visit: Yes Status: Chronic Assessment and plan: Blood pressure stable. Continue Cardizem, metoprolol 50 mg by mouth twice a day. (4) Chronic anticoagulation Current Visit: Yes Status: Chronic Assessment and plan: Continue Xarelto for DVT history. (5) Muscular deconditioning Current Visit: Yes Status: Acute Assessment and plan: Patient demonstrates physical deconditioning will continue physical therapy and occupational therapy during inpatient stay with plans for fpc facility post discharge. This has been discussed with the patient who is agreeable. (6) Sepsis Current Visit: Yes Status: Resolved Assessment and plan: Patient's improving. WBC elevation resolved, without a fever for the last 24 hours, heart rate regular rate and rhythm, respiratory rate 16, blood pressure stable, O2 saturations stable with O2 sats greater than 94% on room air. Qualifiers: Sepsis type: sepsis due to unspecified organism Qualified Code(s): A41.9 - Sepsis, unspecified organism - Subjective Interval history: Ms. Bhagat 75F seen and evaluated patient bedside this morning. She is awake alert and interactive distress. She still complains of some pain with her left lower extremity mainly around the knee. She denies any pain with extension or flexion outside of her norm. She says she has chronic cellulitis of the bilateral lower extremities which comes and goes and flares. 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 She denies any pain or burning with urination. She had a bowel movement this morning without any difficulties or blood. - Constitutional Vitals: Temp Pulse Resp BP Pulse Ox 97.7 F 64 16 95/64 96 06/07/16 10:31 06/07/16 10:31 06/07/16 10:31 06/07/16 10:31 06/07/16 10:31 General appearance: Present: cooperative, mild distress, A&O X 3, answers questions appropriately - Head Head exam: Present: atraumatic, normocephalic - ENT ENT exam: Present: mucous membranes moist - Neck Neck exam general surgery: Present: supple, trachea midline. Absent: lymphadenopathy - Respiratory Respiratory exam: Present: CTAB. Absent: accessory muscle use, rales, rhonchi, wheezes - Cardiovascular Cardiovascular exam: Present: RRR Additional comments: Low-grade systolic ejection murmur. - GI/Abdominal Additional comments: Obese, soft, nontender to palpation positive bowel sounds. - Extremities Exam Extremities exam: Present: pedal edema, warm, radial pulses palpable and symetrical. Absent: calf tenderness, cyanotic Additional comments: Cellulitis of the bilateral lower extremities, signs of lymphedema bilaterally. - Neurological Exam Neurological exam: Present: alert, oriented X3, no focal deficits. Absent: pronater drift, facial droop, speech deficit - Psychiatric Psychiatric exam: Present: normal affect, normal mood Internal Medicine: Result - Labs CBC & Chem 7: 06/07/16 03:37 06/07/16 03:37 Labs: Short CBC 06/07/16 Range/Units 03:37 WBC 10.7 (4.3-11.1) K/mcL Hgb 12.3 (11.5-15.4) g/dL Hct 38.2 (35.3-44.9) % Plt Count 290 (140-400) K/mcL Neutrophils # 5.3 (1.6-8.9) K/mcL BMP 06/07/16 03:37 Sodium 137 Potassium 3.1 L Chloride 95 L Carbon Dioxide 32 H BUN 23 H Creatinine 0.76 Glucose 113 H Calcium 8.5 L - ABG Interpretation ABG results: PT/INR, D-dimer PT 21.4 Seconds (9.4-12.1) H 06/03/16 02:35 Consult Discharge Plan - Plan Referrals: Thomas Parisi DO [Primary Care Provider] - <Lokesh Armendariz - Last Filed: 06/07/16 19:30> Date of Encounter: 06/07/16 - Assessment and plan (1) Muscular deconditioning Current Visit: Yes Status: Acute (2) UTI (urinary tract infection) Current Visit: Yes Status: Acute Qualifiers: Urinary tract infection type: acute cystitis Hematuria presence: with hematuria Qualified Code(s): N30.01 - Acute cystitis with hematuria (3) Lymphedema Current Visit: Yes Status: Acute (4) Essential hypertension Current Visit: Yes Status: Chronic (5) Chronic anticoagulation Current Visit: Yes Status: Chronic (6) Sepsis Current Visit: Yes Status: Resolved Qualifiers: Sepsis type: sepsis due to unspecified organism Qualified Code(s): A41.9 - Sepsis, unspecified organism - Constitutional Vitals: Temp Pulse Resp BP Pulse Ox 99 F 90 16 127/88 91 06/07/16 18:52 06/07/16 18:52 06/07/16 18:52 06/07/16 18:52 06/07/16 18:52 Internal Medicine: Result - Labs CBC & Chem 7: 06/07/16 03:37 06/07/16 03:37 Labs: Short CBC 06/07/16 Range/Units 03:37 WBC 10.7 (4.3-11.1) K/mcL Hgb 12.3 (11.5-15.4) g/dL Hct 38.2 (35.3-44.9) % Plt Count 290 (140-400) K/mcL Neutrophils # 5.3 (1.6-8.9) K/mcL BMP 06/07/16 03:37 Sodium 137 Potassium 3.1 L Chloride 95 L Carbon Dioxide 32 H BUN 23 H Creatinine 0.76 Glucose 113 H Calcium 8.5 L - ABG Interpretation ABG results: PT/INR, D-dimer PT 21.4 Seconds (9.4-12.1) H 06/03/16 02:35 - Attending Attestation I examined this patient and my medical decision-making was reviewed with the Resident Physician, Dr Huston. I agree with the documented findings, disposition and treatment plan as described except to the extent set forth below. We will continue treatment for UTI and sepsis with cefepime. On exam her lower extremity edema and erythema as significantly improved from yesterday. Her white blood cell count is trending down. She has remained afebrile. All together suggesting a response to broad-spectrum antibiotic treatment. The plan is to continue with IV antibiotics until blood cultures are negative at least at 3 days. Currently the preliminary negative. We will plan to de- escalate antibiotic therapy according to culture and sensitivities in 1-2 days. Patient continues to report bilateral lower extremity pain in spite of improved cellulitis and improved lower extremity edema. Given her history of DVT L check a lower extremity ultrasound to rule out recurrent DVT and Eliquis failure. She is at high risk for morbidity and complications due to IV vancomycin which requires intensive blood level monitoring for toxicity. I will hold the vancomycin dosing today due to high trough level of 21.
[2016-06-07] MEDS ORDERED: Vancomycin 1,500 MG in D5% in Water 250 ML IVPB SCH (17:00)
[2016-06-07] MEDS: *HR* OxyCODONE/APAP 5/325 TABLET PO PRN (21:58)
[2016-06-08] MEDS: *HR* OxyCODONE/APAP 5/325 TABLET PO PRN (03:31)
[2016-06-08 05:10] LABS: Basophils # 0.1 K/mcL (0.0-0.2); Basophils % 0.9 %; Eosinophils # 0.1 K/mcL (0.0-0.6); Eosinophils % 1.5 %; Hematocrit 38.2 % (35.3-44.9); Hemoglobin 12.4 g/dL (11.5-15.4); Immature Granulocytes % 1.2 % (0-4); Lymphocytes % 35.2 %; Mean Corpuscular HGB Conc 32.5 g/dL (31.6-35.5); Mean Corpuscular Hemoglobin 29.7 pg (28.0-33.3); Mean Corpuscular Volume 91.4 fL (83.0-100.0); Mean Platelet Volume 10.2 fL (9.4-12.4); Monocytes # 1.2 K/mcL (0.0-1.3); Monocytes % 13.9 %; Neutrophils # 4.1 K/mcL (1.6-8.9); Platelet Count 331 K/mcL (140-400); Red Blood Count 4.18 M/mcL (3.82-4.97); Red Cell Distribution Width 13.3 % (11.5-14.5); Segmented Neutrophils % 47.3 %
[2016-06-08] MEDS: Cefepime HCl 1,000 MG in D5% in Water (Mini-Bag+) 100 ML IVPB SCH (05:48)
[2016-06-08 05:50] LABS: BUN/Creatinine Ratio 35 (6-26); Blood Urea Nitrogen 28 mg/dL (7-20); Calcium 8.8 mg/dL (8.6-10.8); Carbon Dioxide 31 mEq/L (19-29); Chloride 96 mEq/L (98-109); Glucose 108 mg/dL (70-99); Osmolality,Calculated 294 (280-300); Potassium 3.6 mEq/L (3.5-4.5); Sodium 139 mEq/L (136-145); eGFR For African Americans > 60 (> 60); eGFR For Non-African Americans > 60 (> 60)
[2016-06-08 05:52] LABS: Alanine Aminotransferase 52 Units/L (0-55); Albumin 2.1 g/dL (3.5-5.0); Albumin/Globulin Ratio 0.4 (1.1-2.2); Alkaline Phosphatase 193 Units/L (38-126); Aspartate Amino Transferase 67 Units/L (5-34); BUN/Creatinine Ratio 34 (6-26); Bilirubin,Total 1.2 mg/dL (0.2-1.2); Blood Urea Nitrogen 29 mg/dL (7-20); Calcium 8.9 mg/dL (8.6-10.8); Carbon Dioxide 32 mEq/L (19-29); Chloride 96 mEq/L (98-109); Globulin 4.7 g/dL (2.4-3.5); Glucose 108 mg/dL (70-99); Osmolality,Calculated 294 (280-300); Potassium 3.6 mEq/L (3.5-4.5); Sodium 139 mEq/L (136-145); Total Protein 6.8 g/dL (6.0-8.3); eGFR For African Americans > 60 (> 60); eGFR For Non-African Americans > 60 (> 60)
[2016-06-08] MEDS ORDERED: Vancomycin 1,500 MG in D5% in Water 250 ML IVPB ONE (07:00)
[2016-06-08 07:22] VITALS: BP 109/57
[2016-06-08] MEDS: Diltiazem CD (24hr) 180 MG CAPSULE PO SCH (07:50)
[2016-06-08] MEDS: Bumetanide 1 MG/4 ML VIAL IVP SCH (07:51)
[2016-06-08] MEDS: *HR* Rivaroxaban 10 MG TABLET PO SCH (07:51)
[2016-06-08] MEDS: Gabapentin 300 MG CAPSULE PO SCH (07:51)
[2016-06-08] MEDS: Nystatin POWDER 30 GM BOTTLE TP SCH (07:51)
--- NOTE | 2016-06-08 09:59 | Internal Med Progress Note ---
Date of Encounter: 06/08/16 Time of Encounter: 09:56 - Assessment and plan (1) UTI (urinary tract infection) Current Visit: Yes Status: Acute Assessment and plan: Patient presented with signs and symptoms of urinary tract infection, dysuria, hematuria, elevated WBCs,. Previously treated with Bactrim. - Patient on vancomycin and cefepime, antibiotics were advanced to include coverage for resistant Klebsiella and Proteus. -Urine culture demonstrated no growth, blood cultures preliminary demonstrated no growth. Plan: Continue broad-spectrum antibiotics today with plans de-escalate tomorrow. Qualifiers: Urinary tract infection type: acute cystitis Hematuria presence: with hematuria Qualified Code(s): N30.01 - Acute cystitis with hematuria (2) Lymphedema Current Visit: Yes Status: Acute Assessment and plan: Leg elevation. Mobilization and physical therapy. - Continue Bumex 1 mg IV push BID. (3) Essential hypertension Current Visit: Yes Status: Chronic Assessment and plan: Blood pressure stable. Continue Cardizem, metoprolol 50 mg by mouth twice a day. (4) Chronic anticoagulation Current Visit: Yes Status: Chronic Assessment and plan: Continue Xarelto for DVT history. (5) Muscular deconditioning Current Visit: Yes Status: Acute Assessment and plan: Patient demonstrates physical deconditioning will continue physical therapy and occupational therapy during inpatient stay with plans for alf facility post discharge. This has been discussed with the patient who is agreeable. (6) Sepsis Current Visit: Yes Status: Resolved Assessment and plan: Patient's improving. WBC elevation resolved, without a fever for the last 24 hours, heart rate regular rate and rhythm, respiratory rate 16, blood pressure stable, O2 saturations stable with O2 sats greater than 94% on room air. Qualifiers: Sepsis type: sepsis due to unspecified organism Qualified Code(s): A41.9 - Sepsis, unspecified organism - Subjective Interval history: Ms. Bhagat 75F seen and evaluated patient bedside this morning. She is awake alert and interactive distress. She denies any pain or discomforts. She feels that she is improving overall. She does complain of constipation and says that her last bowel movement was 3 days ago. She denies any burning with urination abdominal tenderness, nausea vomiting diarrhea, fevers or chills. She would appreciate assistance with her bowels. - Constitutional Vitals: Temp Pulse Resp BP Pulse Ox 98.0 F 67 17 109/57 90 06/08/16 07:13 06/08/16 07:13 06/08/16 07:13 06/08/16 07:13 06/08/16 07:13 General appearance: Present: cooperative, mild distress, A&O X 3, answers questions appropriately - Eye Eye exam: Present: PERRL, conjuntiva pink, sclera anicteric Pupils: Present: PERRL - Neck Neck exam general surgery: Present: supple, trachea midline. Absent: lymphadenopathy - Respiratory Respiratory exam: Present: CTAB. Absent: accessory muscle use, rales, rhonchi, wheezes - Cardiovascular Cardiovascular exam: Present: irregular rhythm Additional comments: Low-grade systolic ejection murmur. - GI/Abdominal GI/Abdominal exam: Present: normal bowel sounds, soft, no peritoneal signs. Absent: distended, tenderness Additional comments: obese abdomen - Extremities Exam Additional comments: improving Cellulitis of the bilateral lower extremities, signs of lymphedema bilaterally. - Neurological Exam Neurological exam: Present: alert, oriented X3, no focal deficits. Absent: pronater drift, facial droop, speech deficit - Psychiatric Psychiatric exam: Present: normal affect, normal mood Internal Medicine: Result - Labs CBC & Chem 7: 06/08/16 04:31 06/08/16 04:31 Labs: Short CBC 06/08/16 Range/Units 04:31 WBC 8.6 (4.3-11.1) K/mcL Hgb 12.4 (11.5-15.4) g/dL Hct 38.2 (35.3-44.9) % Plt Count 331 (140-400) K/mcL Neutrophils # 4.1 (1.6-8.9) K/mcL BMP 06/08/16 06/08/16 04:31 04:31 Sodium 139 139 Potassium 3.6 3.6 Chloride 96 L 96 L Carbon Dioxide 31 H 32 H BUN 28 H 29 H Creatinine 0.80 0.86 Glucose 108 H 108 H Calcium 8.8 8.9 Liver Function 06/08/16 Range/Units 04:31 Total Bilirubin 1.2 (0.2-1.2) mg/dL AST 67 H (5-34) Units/L ALT 52 (0-55) Units/L Alkaline Phosphatase 193 H (38-126) Units/L Albumin 2.1 L (3.5-5.0) g/dL - ABG Interpretation ABG results: PT/INR, D-dimer PT 21.4 Seconds (9.4-12.1) H 06/03/16 02:35 Consult Discharge Plan - Plan Referrals: Thomas Parisi DO [Primary Care Provider] -
--- NOTE | 2016-06-08 10:11 | Venous Imaging Report ---
LE Venous Duplex Patient Name:Laura Bhagat Order Number:[id number] Procedure Date:06/07/2016 Date:2Age:75 yrs Gender:Female Location:[facility] Room #: [id number] Bean Snipper:Jocelyn Soto Referring MD:Lokesh Armendariz MD electric truck operator:Thomas Parisi DO Reading MD:Rickie Mclaughlin MD Primary Indications:leg pain swelling, R/O DVT Secondary Indications: Risk Factors Yes/No Hx of DVT Yes Anticoagulants Yes Impressions: Bilateral lower extremity: normal superficial and deep exam. Recommendations: After imaging the patient returned to their room. Findings Venous Duplex Results: Right: Venous imaging of the lower extremity reveals full patency and normal vessel compressibility of the right distal iliac, right common femoral, right superficial femoral, right popliteal, right posterior tibial, right peroneal, right great saphenous and right lesser saphenous. Doppler signals in the evaluated veins were normal. Left: Venous imaging of the lower extremity reveals full patency and normal vessel compressibility of the left distal iliac, left common femoral, left superficial femoral, left popliteal, left posterior tibial, left peroneal, left great saphenous and left lesser saphenous. Doppler signals in the evaluated veins were normal. Prior Study: No prior study available for comparison. Lower Extremity Venous Duplex Side Vein Compress Spontaneous Flow Augment Diameter (cm) Depth (cm) Right Distal Iliac Normal Yes Phasic Yes Right Common Femoral Normal Yes Phasic Yes Right Superficial Femoral Normal Yes Phasic Yes Right Popliteal Normal Yes Phasic Yes Right Posterior Tibial Normal Yes Phasic Yes Right Peroneal Normal Yes Phasic Yes Right Great Saphenous Normal Yes Phasic Yes Right Lesser Saphenous Normal Yes Phasic Yes Left Distal Iliac Normal Yes Phasic Yes Left Common Femoral Normal Yes Phasic Yes Left Superficial Femoral Normal Yes Phasic Yes Left Popliteal Normal Yes Phasic Yes Left Posterior Tibial Normal Yes Phasic Yes Left Peroneal Normal Yes Phasic Yes Left Great Saphenous Normal Yes Phasic Yes Left Lesser Saphenous Normal Yes Phasic Yes Updated by Rickie Mclaughlin MD on 06/08/2016 10:06:19 AM electronically signed on 06/08/2016 10:06:39 AM with status of Final
--- NOTE | 2016-06-08 10:20 | Discharge Summary ---
<Davis Huston - Last Filed: 06/08/16 10:25> Date of Encounter: 06/08/16 Time of Encounter: 10:16 - Discharge Diagnosis (1) UTI (urinary tract infection) Priority: Primary Status: Acute Qualifiers: Urinary tract infection type: acute cystitis Hematuria presence: with hematuria Qualified Code(s): N30.01 - Acute cystitis with hematuria (2) Lymphedema Priority: Secondary Status: Acute (3) Essential hypertension Priority: Secondary Status: Chronic (4) Chronic anticoagulation Priority: Secondary Status: Chronic (5) Muscular deconditioning Priority: Primary Status: Acute (6) Sepsis Priority: Primary Status: Resolved Qualifiers: Sepsis type: sepsis due to unspecified organism Qualified Code(s): A41.9 - Sepsis, unspecified organism - Discharge Medications Prescriptions: LORazepam [Ativan] 0.5 mg PO BID PRN #10 tablet PRN Reason: Anxiety Sennosides/Docusate Sodium [Senna Plus] 2 each PO BID PRN #10 tablet PRN Reason: Constipation Sulfamethoxazole/Trimeth DS [Bactrim DS] 1 each PO BID 9 Days Home Medications: Bumetanide [Bumex] 0.5 mg PO BID 01/01/15 [History] Gabapentin [Neurontin] 300 mg PO TID 01/01/15 [History] Metoprolol [Lopressor] 50 mg PO BID 01/01/15 [History] Rivaroxaban [Xarelto] 20 mg PO DAILY 01/01/15 [History] Diltiazem HCl [Cartia Xt] 180 mg PO DAILY 08/14/15 [History] LORazepam [Ativan] 0.5 mg PO BID PRN #10 tablet 06/08/16 [Rx] Sennosides/Docusate Sodium [Senna Plus] 2 each PO BID PRN #10 tablet 06/08/16 [ Rx] Sulfamethoxazole/Trimeth DS [Bactrim DS] 1 each PO BID 9 Days 06/08/16 [Rx] Allergies/Adverse Reactions: Allergies tramadol [From Ultram] Allergy (Verified 08/19/15 12:42) Swelling of Lip/Tongue/Throat latex Adverse Reaction (Unknown, Verified 08/19/15 14:44) See Comments negative 07/31/15 Procedures/tests Complete & Pending: Procedures Performed prior 72 hours Category Date Time Status Venous Doppler [EV venous imaging LE BI] Stat Y 06/07/16 13:27 Completed Date of admission: 06/05/16 17:10 Primary care physician: Thomas Parisi DO Discharging clinician: Davis Huston Anticipated date of discharge: 06/08/16 - Patient Status Disposition: Transfer SNF Condition: Good Functional capacity at discharge: uses cane/walker Overall status at discharge: patient is progressing back to baseline - Discharge Instructions Instructions: Sepsis (DC), Chronic Hypertension (DC) Follow Up With: Thomas Parisi DO [Primary Care Provider] - () Additional Instructions: I recommend follow-up with her primary care provider next 3-5 days Complete antibiotic course. - Diet and Activity Activity: as per physical therapy Diet: advance to your usual diet Interval History: Ms. Bhagat is a 75 year old female patient with history of prior deep vein thrombosis, hypertension and hyperlipidemia who presented to the ER 06/03/2016 with complaints of worsening swelling in her both lower extremities. She was admitted to general medical floor with meeting sepsis criteria was started on IV fluids, blood cultures were drawn, urine culture. She is started on broad- spectrum antibiotics including vancomycin and cefepime. She was found to have a urinary tract infection and bilateral lower extremity cellulitis, superimposed on lymphedema. She was treated in the inpatient setting between and 06/08/2016 receiving 5 days of broad-spectrum antibiotic coverage. Correction of hypokalemia. Leukocytosis resolved. During her inpatient stay she remained afebrile, improvement of her heart rate, respirations were regular and appropriate, blood pressure was stable and oxygen saturations were greater than 90% on room air. She is seen and evaluated on 06/08/2016 and deemed stable for discharge to a short-term rehabilitation center at the recommendations of physical therapy. She was provided a prescription for 9 days of Bactrim and senna when necessary. Hospital course: Ms. Bhagat is a 75 year old female - Time Spent with Patient Total time spent providing and/or coordinating discharge services: - Constitutional Vitals: Temp Pulse Resp BP Pulse Ox 98.0 F 67 17 109/57 90 06/08/16 07:13 06/08/16 07:13 06/08/16 07:13 06/08/16 07:13 06/08/16 07:13 General appearance: Present: cooperative, mild distress, A&O X 3, answers questions appropriately - Head Head exam: Present: atraumatic, normocephalic - ENT ENT exam: Present: mucous membranes moist - Neck Neck exam general surgery: Present: supple, trachea midline. Absent: lymphadenopathy - Respiratory Respiratory exam: Present: CTAB. Absent: accessory muscle use, rales, rhonchi, wheezes - Cardiovascular Cardiovascular exam: Present: irregular rhythm, systolic murmur Additional comments: low grade sysolic ejection murmur. - GI/Abdominal GI/Abdominal exam: Present: normal bowel sounds, soft, no peritoneal signs. Absent: distended, tenderness - Extremities Exam Additional comments: Improved Cellulitis of the bilateral lower extremities, signs of lymphedema bilaterally. - Neurological Exam Neurological exam: Present: alert, oriented X3, no focal deficits. Absent: pronater drift, facial droop, speech deficit - Psychiatric Psychiatric exam: Present: normal affect, normal mood <Lokesh Armendariz - Last Filed: 06/08/16 17:16> Date of Encounter: 06/08/16 - Discharge Diagnosis (1) Muscular deconditioning Status: Acute (2) UTI (urinary tract infection) Status: Acute Qualifiers: Urinary tract infection type: acute cystitis Hematuria presence: with hematuria Qualified Code(s): N30.01 - Acute cystitis with hematuria (3) Lymphedema Status: Acute (4) Essential hypertension Status: Chronic (5) Chronic anticoagulation Status: Chronic (6) Sepsis Status: Resolved Qualifiers: Sepsis type: sepsis due to unspecified organism Qualified Code(s): A41.9 - Sepsis, unspecified organism Procedures/tests Complete & Pending: Procedures Performed prior 72 hours Category Date Time Status Venous Doppler [EV venous imaging LE BI] Stat Y 06/07/16 13:27 Completed Date of admission: 06/05/16 17:10 Primary care physician: Thomas Parisi DO - Patient Status Functional capacity at discharge: uses cane/walker Overall status at discharge: patient is progressing back to baseline - Diet and Activity Activity: as per physical therapy Diet: advance to your usual diet Hospital course: Ms. Bhagat is a 75 year old female - Time Spent with Patient Total time spent providing and/or coordinating discharge services: - Constitutional Vitals: Temp Pulse Resp BP Pulse Ox 98.0 F 67 17 109/57 90 06/08/16 07:13 05/02/17 07:13 06/08/16 07:13 06/08/16 07:13 06/08/16 07:13 - Attending Attestation I examined this patient and my medical decision-making was reviewed with the Resident Physician, Dr Huston. I agree with the documented findings, disposition and treatment plan as described except to the extent set forth below. She reports significant improvement in her lower extremity swelling. Continues to have generalized weakness. Lower extremity exam reveals lymphedema improved from admission. Skin redness on the left leg worse than the right also improved from admission. Please add to discharge diagnosis: Sepsis with unspecified cause. On day 2 of hospitalization the patient meets met criteria for sepsis for elevated white blood cell count and tachycardia and low-grade fever. The source was thought to be UTI versus lower extremity cellulitis and antibiotic coverage was broadened to cefepime and vancomycin. She responded well. White count came down. She remained afebrile. Tachycardia has resolved. Her lower extremity cellulitis looks much better. Blood cultures remain negative. We will discharge her to [facility] with MRSA coverage with Bactrim. I recommend monitoring kidney function closely while on Bactrim.
--- NOTE | 2016-06-08 10:25 | Physician Discharge Referral ---
ExtendedCare Referral Info Transfer To: SNF Provider in Charge after Transfer: PCP Institutional Level of Care: Skilled - Diagnosis (1) UTI (urinary tract infection) Priority: Primary Status: Acute (2) Lymphedema Priority: Primary Status: Acute (3) Essential hypertension Priority: Primary Status: Chronic (4) Chronic anticoagulation Priority: Primary Status: Chronic (5) Muscular deconditioning Priority: Primary Status: Acute (6) Sepsis Priority: Primary Status: Resolved - Transfer Medications Prescriptions: Sennosides/Docusate Sodium [Senna Plus] 2 each PO BID PRN #10 tablet PRN Reason: Constipation Sulfamethoxazole/Trimeth DS [Bactrim DS] 1 each PO BID 9 Days Home Medications: Bumetanide [Bumex] 0.5 mg PO BID 01/01/15 [History] Gabapentin [Neurontin] 300 mg PO TID 01/01/15 [History] Metoprolol [Lopressor] 50 mg PO BID 01/01/15 [History] Rivaroxaban [Xarelto] 20 mg PO DAILY 01/01/15 [History] Diltiazem HCl [Cartia Xt] 180 mg PO DAILY 08/14/15 [History] LORazepam [Ativan] 0.5 mg PO BID PRN 08/14/15 [History] Sennosides/Docusate Sodium [Senna Plus] 2 each PO BID PRN #10 tablet 06/08/16 [ Rx] Sulfamethoxazole/Trimeth DS [Bactrim DS] 1 each PO BID 9 Days 06/08/16 [Rx] Allergies/Adverse Reactions: Allergies tramadol [From Ultram] Allergy (Verified 08/19/15 12:42) Swelling of Lip/Tongue/Throat latex Adverse Reaction (Unknown, Verified 08/19/15 14:44) See Comments negative 07/31/15 - Respiratory Orders Smoking Cessation: Smoking cessation has been advised. For more information, call the [place] Tobacco Quit Line at 8-565-BLBX-NOW. - Ancillary Orders May use pressure relief devices daily prn, May consult with Dentist, Engineer Booster And Exhauster, Assembly Machine Feeder PRN - Advance Directives Living Will: No Power of Coater: No Code Status: Full Code - Mobility Orders Ambulate - Rehabiliation Orders Rehab Potential: Good Rehab Orders: Evaluation for Physical Therapy, Evaluation for Occupational Therapy - Treatments Skin tear care topically daily PRN per policy, Fleet enema rectally every other day PRN cleansing purposes - Diet Orders Cardiac CERTIFICATION: I certify that the transfer of the above named patient to an Extended Care Facility is necessary for the continuing treatment of the diagnosis listed. The above information is true and accurate reflection of patient's current condition. Confidential - Redisclosure prohibited without a patient's written consent.
[2016-06-08] MEDS ORDERED: Aminoglycoside Consult 1 EACH MC ONE (12:54)
== END 2016-06-08 12:55 | DRG 872 ==
LOC: 3NENU 00:38 → EMEROO 00:38 → 3NENU 07:26 → 3BNU 06-05 16:10
PROVIDERS: ADMIT Internal Medicine; ATTEND Internal Medicine

== ENCOUNTER 2021-09-22 15:00 | Inpatient (IN) ==
[2021-09-22] MEDS ORDERED: Naloxone 0.4 MG/ML INJ IVP PRN (19:25)
[2021-09-22] MEDS ORDERED: Melatonin 3 MG TABLET PO PRN (19:25)
[2021-09-22] MEDS ORDERED: *HR* OxyCODONE Immed Rel 5 MG TABLET PO PRN (19:25)
[2021-09-22] MEDS ORDERED: *HR* HYDROcodone/Acet 5/325 mg TABLET PO PRN (19:25)
[2021-09-22] MEDS ORDERED: Acetaminophen 325 MG TABLET PO PRN (19:25)
[2021-09-22] MEDS ORDERED: Ondansetron ODT 4 MG TAB.RAPDIS SL PRN (19:25)
[2021-09-22] MEDS ORDERED: Dextrose Gel 15 GM/37.5 ML TUBE PO PRN ×2 (20:11)
[2021-09-22] MEDS ORDERED: *HR* Dextrose 50 % in Water (Syg) 50 ML SYRINGE IVP PRN (20:11)
[2021-09-22] MEDS ORDERED: D5% in Water 1,000 ML IVC PRN (20:11)
[2021-09-23 02:03] LABS: Hemoglobin 11.1 g/dL (11.5-15.4); Mean Corpuscular HGB Conc 31.7 g/dL (31.6-35.5); Mean Corpuscular Hemoglobin 30.2 pg (28.0-33.3); Mean Corpuscular Volume 95.1 fL (83.0-100.0); Mean Platelet Volume 10.7 fL (9.4-12.4); Platelet Count 217 K/mcL (140-400); Red Blood Count 3.68 M/mcL (3.82-4.97); Red Cell Distribution Width 14.2 % (11.5-14.5); White Blood Count 16.4 K/mcL (4.3-11.1)
[2021-09-23 02:13] LABS: INR 2.4
[2021-09-23 02:15] LABS: Activated Partial Thrombo Time 39.4 Seconds (26.0-36.0)
[2021-09-23 02:24] LABS: Chol/HDL Ratio 2.2 (0-4.9); Magnesium 1.7 mg/dL (1.6-2.6); Phosphorous 2.2 mg/dL (2.7-4.5); Potassium 3.6 mEq/L (3.5-5.1)
[2021-09-23 03:15] LABS: Estimated Average Glucose 97 mg/dl
[2021-09-23] MEDS: cefTRIAXone 1,000 MG in 0.9 % Sodium Chloride 10 ML IVP SCH (08:35)
[2021-09-23] MEDS: Aspirin Enteric Coated 81 MG Tablet PO SCH (10:56)
[2021-09-23] MEDS: 0.9 % Sodium Chloride 1,000 ML IVC SCH (10:56)
[2021-09-23] MEDS: DilTIAZem CD (24hr) 180 MG CAP.ER.24H PO SCH (12:54)
[2021-09-24] MEDS: 0.9 % Sodium Chloride 1,000 ML IVC SCH ×3 (00:39→18:35)
[2021-09-24 02:53] LABS: Basophils # 0.1 K/mcL (0.0-0.2); Basophils % 0.6 %; Eosinophils # 0.3 K/mcL (0.0-0.6); Hematocrit 35.1 % (35.3-44.9); Immature Granulocytes % 0.4 % (0-4); Lymphocytes # 2.6 K/mcL (0.6-4.6); Lymphocytes % 24.9 %; Mean Corpuscular HGB Conc 31.3 g/dL (31.6-35.5); Mean Corpuscular Hemoglobin 30.2 pg (28.0-33.3); Mean Corpuscular Volume 96.4 fL (83.0-100.0); Mean Platelet Volume 10.3 fL (9.4-12.4); Neutrophils # 6.6 K/mcL (1.6-8.9); Platelet Count 216 K/mcL (140-400); Red Blood Count 3.64 M/mcL (3.82-4.97); Segmented Neutrophils % 62.1 %; White Blood Count 10.6 K/mcL (4.3-11.1)
[2021-09-24 03:26] LABS: Calcium 7.9 mg/dL (8.6-10.3); Magnesium 1.7 mg/dL (1.6-2.6); Phosphorous 2.3 mg/dL (2.7-4.5); Potassium 3.6 mEq/L (3.5-5.1)
[2021-09-24] MEDS ORDERED: Ondansetron 4 MG/2 ML VIAL IVP PRN (06:51)
[2021-09-24] MEDS ORDERED: Acetaminophen IV 1,000 MG/100 ML BAG IVPB ONE (07:30)
[2021-09-24] MEDS ORDERED: Famotidine 20 MG/2 ML VIAL IVP ONE ×2 (07:30→18:29)
[2021-09-24] MEDS: cefTRIAXone 1,000 MG in 0.9 % Sodium Chloride 10 ML IVP SCH (08:46)
[2021-09-24] MEDS: Aspirin Enteric Coated 81 MG Tablet PO SCH (08:47)
[2021-09-24] MEDS: DilTIAZem CD (24hr) 180 MG CAP.ER.24H PO SCH (08:47)
[2021-09-24] MEDS ORDERED: *HR* Propofol 200 MG/20 ML VIAL IVP ONE ×2 (13:56→16:22)
[2021-09-24] MEDS ORDERED: Ondansetron 4 MG/2 ML VIAL ONE (13:56)
[2021-09-24] MEDS ORDERED: Lidocaine -MPF 2% 5 ML VIAL ONE (13:56)
[2021-09-24] MEDS ORDERED: *HR* Succinylcholine 200 MG/10 ML VIAL IVP ONE (13:56)
[2021-09-24] MEDS ORDERED: Iopamidol - 300 50 ML VIAL ONE (13:57)
[2021-09-24] MEDS ORDERED: *HR* FentaNYL (PF) 100 MCG/2 ML VIAL ONE (16:00)
[2021-09-24] MEDS ORDERED: *HR* Rocuronium Bromide 50 MG/5 ML VIAL ONE (16:29)
[2021-09-24] MEDS ORDERED: Sugammadex Sodium 200 MG/2 ML VIAL IV ONE (16:33)
[2021-09-24] MEDS ORDERED: *HR* HYDROcodone/Acet 5/325 mg TABLET PO PRN (18:29)
[2021-09-24] MEDS ORDERED: Naloxone 0.4 MG/ML INJ IVP PRN (18:29)
[2021-09-24] MEDS ORDERED: *HR* Dextrose 50 % in Water (Syg) 50 ML SYRINGE IVP PRN (18:29)
[2021-09-24] MEDS ORDERED: Acetaminophen 325 MG TABLET PO PRN (18:29)
[2021-09-24] MEDS ORDERED: Melatonin 3 MG TABLET PO PRN (18:29)
[2021-09-24] MEDS ORDERED: D5% in Water 1,000 ML IVC PRN (18:29)
[2021-09-24] MEDS ORDERED: *HR* OxyCODONE Immed Rel 5 MG TABLET PO PRN (18:29)
[2021-09-24] MEDS ORDERED: Dextrose Gel 15 GM/37.5 ML TUBE PO PRN ×2 (18:29)
[2021-09-24] MEDS ORDERED: Ondansetron ODT 4 MG TAB.RAPDIS SL PRN (18:29)
[2021-09-25 02:00] LABS: BUN/Creatinine Ratio 19 (6-26); Blood Urea Nitrogen 12 mg/dL (8-23); Calcium 8.4 mg/dL (8.6-10.3); Carbon Dioxide 22 mEq/L (23-29); Chloride 107 mEq/L (98-107); Glucose 110 mg/dL (70-105); Magnesium 1.6 mg/dL (1.6-2.6); Osmolality,Calculated 286 (280-300); Phosphorous 3.2 mg/dL (2.7-4.5); Sodium 138 mEq/L (136-145)
[2021-09-25 02:58] LABS: Basophils % 0.1 %; Eosinophils # 0.1 K/mcL (0.0-0.6); Eosinophils % 0.3 %; Hematocrit 39.1 % (35.3-44.9); Hemoglobin 12.5 g/dL (11.5-15.4); Immature Granulocytes % 0.4 % (0-4); Lymphocytes # 0.8 K/mcL (0.6-4.6); Lymphocytes % 4.1 %; Mean Corpuscular Hemoglobin 29.8 pg (28.0-33.3); Mean Corpuscular Volume 93.3 fL (83.0-100.0); Mean Platelet Volume 10.2 fL (9.4-12.4); Monocytes # 0.6 K/mcL (0.0-1.3); Monocytes % 2.7 %; Neutrophils # 18.9 K/mcL (1.6-8.9); Platelet Count 266 K/mcL (140-400); Red Blood Count 4.19 M/mcL (3.82-4.97); Red Cell Distribution Width 13.4 % (11.5-14.5); Segmented Neutrophils % 92.4 %; White Blood Count 20.5 K/mcL (4.3-11.1)
[2021-09-25] MEDS: 0.9 % Sodium Chloride 1,000 ML IVC SCH ×2 (06:56→20:10)
[2021-09-25] MEDS: DilTIAZem CD (24hr) 180 MG CAP.ER.24H PO SCH (08:07)
[2021-09-25] MEDS: Aspirin Enteric Coated 81 MG Tablet PO SCH (08:07)
[2021-09-25] MEDS ORDERED: cefTRIAXone 1,000 MG in 0.9 % Sodium Chloride 10 ML IVP SCH (09:00)
[2021-09-25] MEDS ORDERED: Haloperidol Lactate 5 MG/ML VIAL IM ONE (10:23)
[2021-09-25] MEDS: Piperacillin/Tazobactam 3.375 GM in 0.9 % Sodium Chloride Mini Bag 100 ML IVPB SCH ×2 (13:36→20:07)
[2021-09-26] MEDS: Piperacillin/Tazobactam 3.375 GM in 0.9 % Sodium Chloride Mini Bag 100 ML IVPB SCH ×3 (04:17→20:39)
[2021-09-26] MEDS: Aspirin Enteric Coated 81 MG Tablet PO SCH (08:28)
[2021-09-26] MEDS: DilTIAZem CD (24hr) 180 MG CAP.ER.24H PO SCH (08:28)
[2021-09-26 09:07] LABS: Basophils % 0.3 %; Eosinophils # 0.1 K/mcL (0.0-0.6); Eosinophils % 0.3 %; Hemoglobin 13.6 g/dL (11.5-15.4); Immature Granulocytes % 0.9 % (0-4); Lymphocytes # 1.1 K/mcL (0.6-4.6); Lymphocytes % 7.3 %; Mean Corpuscular HGB Conc 32.4 g/dL (31.6-35.5); Mean Corpuscular Hemoglobin 30.4 pg (28.0-33.3); Mean Corpuscular Volume 93.8 fL (83.0-100.0); Monocytes % 6.6 %; Neutrophils # 12.4 K/mcL (1.6-8.9); Platelet Count 321 K/mcL (140-400); Red Blood Count 4.48 M/mcL (3.82-4.97); Red Cell Distribution Width 13.5 % (11.5-14.5); Segmented Neutrophils % 84.6 %; White Blood Count 14.6 K/mcL (4.3-11.1)
[2021-09-26 09:27] LABS: Calcium 8.6 mg/dL (8.6-10.3); Potassium 3.6 mEq/L (3.5-5.1)
[2021-09-26] MEDS: 0.9 % Sodium Chloride 1,000 ML IVC SCH ×2 (10:25→23:18)
[2021-09-27 02:27] LABS: Basophils # 0.1 K/mcL (0.0-0.2); Basophils % 0.6 %; Eosinophils # 0.2 K/mcL (0.0-0.6); Eosinophils % 1.8 %; Hematocrit 36.9 % (35.3-44.9); Immature Granulocytes % 1.4 % (0-4); Lymphocytes # 1.8 K/mcL (0.6-4.6); Lymphocytes % 14.2 %; Mean Corpuscular HGB Conc 31.7 g/dL (31.6-35.5); Mean Corpuscular Volume 94.6 fL (83.0-100.0); Mean Platelet Volume 10.2 fL (9.4-12.4); Monocytes # 1.4 K/mcL (0.0-1.3); Monocytes % 11.1 %; Neutrophils # 8.8 K/mcL (1.6-8.9); Platelet Count 280 K/mcL (140-400); Red Cell Distribution Width 13.7 % (11.5-14.5); Segmented Neutrophils % 70.9 %; White Blood Count 12.5 K/mcL (4.3-11.1)
[2021-09-27 02:28] LABS: Hemoglobin 11.7 g/dL (11.5-15.4)
[2021-09-27 02:45] LABS: Calcium 7.7 mg/dL (8.6-10.3); Potassium 3.4 mEq/L (3.5-5.1)
[2021-09-27] MEDS: Piperacillin/Tazobactam 3.375 GM in 0.9 % Sodium Chloride Mini Bag 100 ML IVPB SCH (04:07)
[2021-09-27] MEDS: Aspirin Enteric Coated 81 MG Tablet PO SCH (08:10)
[2021-09-27] MEDS: DilTIAZem CD (24hr) 180 MG CAP.ER.24H PO SCH (08:10)
[2021-09-27] MEDS: 0.9 % Sodium Chloride 1,000 ML IVC SCH (12:55)
[2021-09-28] MEDS: 0.9 % Sodium Chloride 1,000 ML IVC SCH (02:45)
[2021-09-28 02:48] LABS: Basophils # 0.1 K/mcL (0.0-0.2); Basophils % 0.8 %; Eosinophils # 0.3 K/mcL (0.0-0.6); Eosinophils % 2.2 %; Hematocrit 35.5 % (35.3-44.9); Hemoglobin 11.2 g/dL (11.5-15.4); Immature Granulocytes % 2.3 % (0-4); Lymphocytes # 2.7 K/mcL (0.6-4.6); Lymphocytes % 22.6 %; Mean Corpuscular HGB Conc 31.5 g/dL (31.6-35.5); Mean Corpuscular Hemoglobin 29.9 pg (28.0-33.3); Mean Corpuscular Volume 94.9 fL (83.0-100.0); Mean Platelet Volume 10.7 fL (9.4-12.4); Monocytes # 1.3 K/mcL (0.0-1.3); Monocytes % 10.8 %; Neutrophils # 7.3 K/mcL (1.6-8.9); Platelet Count 279 K/mcL (140-400); Red Blood Count 3.74 M/mcL (3.82-4.97); Red Cell Distribution Width 13.8 % (11.5-14.5); Segmented Neutrophils % 61.3 %
[2021-09-28 02:59] LABS: Calcium 7.6 mg/dL (8.6-10.3); Potassium 3.8 mEq/L (3.5-5.1)
[2021-09-28 03:35] VITALS: PULSE 74
[2021-09-28 07:43] VITALS: BP 152/75; TEMP 97.9; O2SAT 97
[2021-09-28] MEDS: Aspirin Enteric Coated 81 MG Tablet PO SCH (07:58)
[2021-09-28] MEDS: DilTIAZem CD (24hr) 180 MG CAP.ER.24H PO SCH (07:58)
== END 2021-09-28 11:58 | disposition home health service (06) | DRG 661 ==
LOC: 3BNU → SUATTDRO 18:20
PROVIDERS: ADMIT Internal Medicine; ATTEND Internal Medicine